=== PATIENT | female | born 1980 | race Asian ===

== ENCOUNTER 2018-07-14 04:46 | Inpatient (IN) | payer OTHER ==
[~2018-07-14] VITALS: Ht 152.4 cm; Wt 63.0 kg
[2018-07-14] MEDS ORDERED: TERBUTALINE 1 MG/ML, 1ML IV ONE (05:00)
[2018-07-14] MEDS ORDERED: TERBUTALINE 1 MG/ML, 1ML ONE (05:03)
[2018-07-14] MEDS ORDERED: PLEASE ENTER ALLERGIES MC SCH (05:30)
[2018-07-14] MEDS ORDERED: AZITHROMYCIN 500 MG TABLET PO STA (05:50)
[2018-07-14] MEDS: D5%-LACTATED RINGERS 1,000 ML IV SCH ×3 (05:50→21:50)
[2018-07-14] MEDS ORDERED: BETAMETHASONE 6 MG/ML, 5ML IM ONE (05:57)
[2018-07-14] MEDS ORDERED: MAGNESIUM SULF. PMX 20GM/500ML 500 ML IV ONE ×3 (05:57→22:26)
[2018-07-14] MEDS: LACTATED RINGERS 1,000 ML IV SCH ×2 (06:00→19:19)
[2018-07-14] MEDS ORDERED: BETAMETHASONE 6 MG/ML, 5ML IM SCH (06:00)
[2018-07-14] MEDS ORDERED: ONDANSETRON 2MG/ML, 2ML IVPush PRN (06:00)
[2018-07-14] MEDS: BETAMETHASONE 6 MG/ML, 5ML IM SCH (06:00)
[2018-07-14] MEDS: MAGNESIUM SULF. PMX 20GM/500ML 500 ML IV SCH ×3 (07:05→22:30)
[2018-07-14] MEDS: AMPICILLIN 2 GM in SODIUM CHLORIDE 0.9% 100 ML IV SCH ×3 (07:15→19:17)
[2018-07-14] MEDS ORDERED: MAGNESIUM SULFATE PMX 4GM/100M 100 ML IVPB ONE (07:30)
[2018-07-14] MEDS ORDERED: LIDOCAINE GEL 2%, 5ML TP ONE (08:30)
[2018-07-14 09:31] LABS: BASOPHILS # (AUTO) 0.01 x10^3/uL (0-0.1); BASOPHILS % (AUTO) 0 % (0-1); EOSINOPHILS % (AUTO) 0 % (1-7); LYMPHOCYTES # (AUTO) 0.98 x10^3/uL (1-3.4); LYMPHOCYTES % (AUTO) 9 % (22-44); MD NO; MEAN CORPUSCULAR HEMOGLOBIN 31.6 pg (27.0-34.8); MEAN CORPUSCULAR HGB CONC 33.1 g/dL (32.4-35.8); MEAN CORPUSCULAR VOLUME 95.6 fL (80-100); MEAN PLATELET VOLUME 8.4 fL (7.4-10.4); MONOCYTES # (AUTO) 0.19 x10^3/uL (0.2-0.8); MONOCYTES % (AUTO) 2 % (2-9); NEUTROPHILS # (AUTO) 9.57 x10^3/uL (1.8-6.8); NEUTROPHILS % (AUTO) 89 % (42-75); PLATELET COUNT 257 x10^3/uL (130-400); RED BLOOD COUNT 3.96 x10^6/uL (3.82-5.3); RED CELL DISTRIBUTION WIDTH 13.3 % (9.6-15.2)
[2018-07-14] MEDS ORDERED: DOCUSATE 100 MG CAPSULE ONE ×2 (10:24→20:52)
[2018-07-14] MEDS ORDERED: PRENATAL VIT/IRON/FA 1 EACH TABLET ONE (10:24)
[2018-07-14] MEDS: PRENATAL VIT/IRON/FA 1 EACH TABLET PO SCH (10:27)
[2018-07-14] MEDS: DOCUSATE 100 MG CAPSULE PO SCH ×2 (10:27→21:16)
[2018-07-14] MEDS ORDERED: INDOMETHACIN 25 MG CAPSULE ONE (13:22)
[2018-07-14] MEDS: INDOMETHACIN 50 MG CAPSULE PO SCH ×2 (13:31→19:33)
[2018-07-14 13:40] VITALS: BP 107/60
[2018-07-14] MEDS ORDERED: ACETAMINOPHEN 325 MG TABLET ONE (16:53)
[2018-07-14] MEDS: ACETAMINOPHEN 325 MG TABLET PO PRN (16:58)
[2018-07-15] MEDS ORDERED: CALCIUM CARBONATE 500 MG TAB.CHEW ONE (00:19)
[2018-07-15] MEDS ORDERED: SODIUM CHLORIDE NASAL SPRAY 45ML BOTTLE NAS PRN (00:30)
[2018-07-15] MEDS ORDERED: CALCIUM CARBONATE 500 MG TAB.CHEW PO PRN (00:30)
[2018-07-15] MEDS ORDERED: ACETAMINOPHEN 325 MG TABLET ONE ×2 (01:11→13:34)
[2018-07-15] MEDS: AMPICILLIN 2 GM in SODIUM CHLORIDE 0.9% 100 ML IV SCH ×4 (01:11→19:13)
[2018-07-15] MEDS: INDOMETHACIN 50 MG CAPSULE PO SCH ×4 (01:12→19:13)
[2018-07-15] MEDS: ACETAMINOPHEN 325 MG TABLET PO PRN ×2 (01:12→13:36)
[2018-07-15] MEDS ORDERED: ACETAMINOPHEN 325 MG TABLET PO PRN (01:30)
[2018-07-15] MEDS ORDERED: MAGNESIUM SULF. PMX 20GM/500ML 500 ML IV ONE ×2 (05:48→17:17)
[2018-07-15] MEDS: D5%-LACTATED RINGERS 1,000 ML IV SCH (05:50)
[2018-07-15] MEDS: BETAMETHASONE 6 MG/ML, 5ML IM SCH (05:55)
[2018-07-15] MEDS: LACTATED RINGERS 1,000 ML IV SCH ×2 (07:54→19:00)
[2018-07-15] MEDS: MAGNESIUM SULF. PMX 20GM/500ML 500 ML IV SCH ×2 (07:58→17:21)
[2018-07-15] MEDS ORDERED: DOCUSATE 100 MG CAPSULE ONE (08:50)
[2018-07-15] MEDS ORDERED: PRENATAL VIT/IRON/FA 1 EACH TABLET ONE (08:50)
[2018-07-15] MEDS: PRENATAL VIT/IRON/FA 1 EACH TABLET PO SCH (08:51)
[2018-07-15] MEDS: DOCUSATE 100 MG CAPSULE PO SCH (08:51)
[2018-07-15] MEDS ORDERED: ERYTHROMYCIN 500 MG in SODIUM CHLORIDE 0.9% 100 ML IV SCH (09:00)
[2018-07-15] MEDS ORDERED: SIMETHICONE 80 MG CHEW TAB ONE ×2 (15:20→18:32)
[2018-07-15] MEDS: SIMETHICONE 80 MG CHEW TAB PO PRN ×2 (15:21→18:33)
[2018-07-16] MEDS ORDERED: ACETAMINOPHEN 325 MG TABLET ONE (00:25)
[2018-07-16] MEDS ORDERED: DOCUSATE 100 MG CAPSULE ONE ×2 (00:25→07:40)
[2018-07-16] MEDS: ACETAMINOPHEN 325 MG TABLET PO PRN (00:27)
[2018-07-16] MEDS: LACTATED RINGERS 1,000 ML IV SCH (00:27)
[2018-07-16] MEDS: DOCUSATE 100 MG CAPSULE PO SCH ×3 (00:27→09:00)
[2018-07-16] MEDS: INDOMETHACIN 50 MG CAPSULE PO SCH ×2 (01:02→07:42)
[2018-07-16] MEDS: AMPICILLIN 2 GM in SODIUM CHLORIDE 0.9% 100 ML IV SCH (01:03)
[2018-07-16] MEDS ORDERED: MAGNESIUM SULF. PMX 20GM/500ML 500 ML IV ONE (03:05)
[2018-07-16] MEDS: MAGNESIUM SULF. PMX 20GM/500ML 500 ML IV SCH (03:12)
[2018-07-16] MEDS ORDERED: AMOXICILLIN 500 MG CAPSULE ONE ×3 (06:11→21:28)
[2018-07-16] MEDS: AMOXICILLIN 500 MG CAPSULE PO SCH ×3 (06:12→21:32)
[2018-07-16] MEDS ORDERED: PRENATAL VIT/IRON/FA 1 EACH TABLET ONE (07:39)
[2018-07-16] MEDS ORDERED: SIMETHICONE 80 MG CHEW TAB ONE (07:40)
[2018-07-16] MEDS: SIMETHICONE 80 MG CHEW TAB PO PRN (07:43)
[2018-07-16] MEDS: PRENATAL VIT/IRON/FA 1 EACH TABLET PO SCH (07:43)
[2018-07-17] MEDS ORDERED: AMOXICILLIN 500 MG CAPSULE ONE ×3 (05:49→21:01)
[2018-07-17] MEDS: AMOXICILLIN 500 MG CAPSULE PO SCH ×4 (05:56→21:03)
[2018-07-17 07:30] VITALS: BP 94/63
[2018-07-17] MEDS: PRENATAL VIT/IRON/FA 1 EACH TABLET PO SCH ×2 (09:00→16:25)
[2018-07-17] MEDS ORDERED: PRENATAL VIT/IRON/FA 1 EACH TABLET ONE (16:24)
[2018-07-17] MEDS ORDERED: DOCUSATE 100 MG CAPSULE ONE (16:24)
[2018-07-17] MEDS: DOCUSATE 100 MG CAPSULE PO SCH ×2 (16:25→21:00)
[2018-07-17] MEDS: LACTATED RINGERS 1,000 ML IV SCH (19:00)
[2018-07-17] MEDS ORDERED: MAGNESIUM SULF. PMX 20GM/500ML 500 ML IV ONE (19:15)
[2018-07-17] MEDS ORDERED: MAGNESIUM SULFATE PMX 4GM/100M 100 ML IVPB ONE (19:30)
[2018-07-17] MEDS ORDERED: NEWBORN KIT ONE (19:37)
[2018-07-17] MEDS: MAGNESIUM SULF. PMX 20GM/500ML 500 ML IV SCH (19:45)
[2018-07-18] MEDS ORDERED: MAGNESIUM SULF. PMX 20GM/500ML 500 ML IV ONE ×2 (02:30→22:31)
[2018-07-18] MEDS: MAGNESIUM SULF. PMX 20GM/500ML 500 ML IV SCH (02:32)
[2018-07-18 06:08] VITALS: BP 104/57
[2018-07-18] MEDS ORDERED: ACETAMINOPHEN 325 MG TABLET ONE (06:20)
[2018-07-18] MEDS: ACETAMINOPHEN 325 MG TABLET PO PRN (06:22)
[2018-07-18] MEDS: DOCUSATE 100 MG CAPSULE PO SCH ×2 (09:00→21:42)
[2018-07-18] MEDS: AMOXICILLIN 500 MG CAPSULE PO SCH ×3 (09:00→21:43)
[2018-07-18] MEDS ORDERED: PRENATAL VIT/IRON/FA 1 EACH TABLET ONE (10:47)
[2018-07-18] MEDS ORDERED: DOCUSATE 100 MG CAPSULE ONE ×2 (10:48→21:40)
[2018-07-18] MEDS ORDERED: AMOXICILLIN 500 MG CAPSULE ONE ×3 (10:48→21:41)
[2018-07-18] MEDS ORDERED: METOCLOPRAMIDE 5 MG/ML, 2ML ONE (16:52)
[2018-07-18] MEDS ORDERED: SODIUM CITRATE/CITRIC ACID 30 ML UDC ONE (16:52)
[2018-07-18] MEDS ORDERED: SODIUM CITRATE/CITRIC ACID 30 ML UDC PO ONE (17:00)
[2018-07-18] MEDS ORDERED: LACTATED RINGERS 1,000 ML IVBOLUS ONE (17:00)
[2018-07-18] MEDS ORDERED: METOCLOPRAMIDE 5 MG/ML, 2ML IV ONE (17:00)
[2018-07-18 18:53] LABS: BASOPHILS # (AUTO) 0.01 x10^3/uL (0-0.1); BASOPHILS % (AUTO) 0 % (0-1); EOSINOPHILS # (AUTO) 0.06 x10^3/uL (0-0.4); EOSINOPHILS % (AUTO) 1 % (1-7); LYMPHOCYTES # (AUTO) 1.29 x10^3/uL (1-3.4); LYMPHOCYTES % (AUTO) 20 % (22-44); MD NO; MEAN CORPUSCULAR HGB CONC 34.6 g/dL (32.4-35.8); MEAN CORPUSCULAR VOLUME 95.1 fL (80-100); MEAN PLATELET VOLUME 7.8 fL (7.4-10.4); MONOCYTES % (AUTO) 9 % (2-9); NEUTROPHILS # (AUTO) 4.48 x10^3/uL (1.8-6.8); NEUTROPHILS % (AUTO) 70 % (42-75); PLATELET COUNT 233 x10^3/uL (130-400); RED CELL DISTRIBUTION WIDTH 13.6 % (9.6-15.2)
[2018-07-18 19:32] VITALS: BP 124/62
[2018-07-18] MEDS ORDERED: SODIUM CHLORIDE FLUSH 3ML SYRINGE IVF SCH (21:00)
[2018-07-18] MEDS: LACTATED RINGERS 1,000 ML IV SCH ×2 (21:43→22:55)
[2018-07-18] MEDS ORDERED: MAGNESIUM SULFATE PMX 2GM/50ML 50 ML ONE (22:31)
[2018-07-18] MEDS ORDERED: CEFAZOLIN 1,000 MG ONE (22:41)
[2018-07-18] MEDS ORDERED: HYDROmorphone 2 MG/ML, 1ML ONE (22:41)
[2018-07-18] MEDS ORDERED: OXYTOCIN 10 UNITS/ML, 1ML ONE (22:41)
[2018-07-18] MEDS ORDERED: ONDANSETRON 2MG/ML, 2ML ONE (22:41)
[2018-07-18] MEDS ORDERED: FENTANYL PF 100 MCG/2ML ONE (22:41)
[2018-07-18] MEDS ORDERED: SODIUM CHLORIDE 0.9% PF 10ML ONE ×2 (22:43)
[2018-07-18] MEDS ORDERED: METOCLOPRAMIDE 5 MG/ML, 2ML IV PRN (23:00)
[2018-07-18] MEDS ORDERED: OXYcodone/APAP 5/325MG TABLET PO PRN (23:00)
[2018-07-18] MEDS ORDERED: MAGNESIUM SULF. PMX 20GM/500ML 500 ML IV PRN (23:00)
[2018-07-18] MEDS ORDERED: CARBOPROST TROMETHAMINE 250 MCG/ML, 1ML IM PRN (23:00)
[2018-07-18] MEDS ORDERED: GLYCERIN ADULT SUPP PR PRN (23:00)
[2018-07-18] MEDS ORDERED: ACETAMINOPHEN 325 MG TABLET PO PRN ×2 (23:00)
[2018-07-18] MEDS ORDERED: METHYLERGONOVINE 0.2 MG/ML IM PRN (23:00)
[2018-07-18] MEDS ORDERED: BISACODYL 10 MG SUPP PR PRN (23:00)
[2018-07-18] MEDS ORDERED: SIMETHICONE 80 MG CHEW TAB PO PRN (23:00)
[2018-07-18] MEDS ORDERED: MISOPROSTOL 200 MCG TABLET PR PRN (23:00)
[2018-07-18] MEDS ORDERED: CALCIUM CARBONATE 500 MG TAB.CHEW PO PRN (23:00)
[2018-07-18] MEDS ORDERED: DIPH,PERTUSS(ACELL),TET VAC/PF NC IM-VACC PRN (23:00)
[2018-07-18] MEDS ORDERED: MEASLES,MUMPS&RUBELLA VACC/PF 0.5 ML SQ-VACC PRN (23:00)
[2018-07-18] MEDS ORDERED: ONDANSETRON 2MG/ML, 2ML IV PRN (23:00)
[2018-07-18] MEDS ORDERED: KETOROLAC 30 MG/1 ML ONE (23:03)
[2018-07-19] MEDS ORDERED: KETOROLAC 30 MG/1 ML ONE (00:15)
[2018-07-19] MEDS ORDERED: OXYTOCIN 30U/ 0.9% NaCL 500ML 500 ML ONE (00:15)
[2018-07-19] MEDS: OXYTOCIN 30U/ 0.9% NaCL 500ML 500 ML IV SCH ×2 (00:25→08:55)
[2018-07-19] MEDS: LACTATED RINGERS 1,000 ML IV SCH ×9 (00:25→22:55)
[2018-07-19] MEDS: KETOROLAC 30 MG/1 ML IV SCH ×5 (00:26→22:43)
[2018-07-19] MEDS ORDERED: MAGNESIUM SULF. PMX 20GM/500ML 500 ML IV PRN (01:00)
[2018-07-19 02:10] VITALS: BP 100/64
[2018-07-19] MEDS: OXYcodone/APAP 5/325MG TABLET PO PRN ×3 (05:28→19:57)
[2018-07-19 07:50] VITALS: BP 108/66
[2018-07-19] MEDS: PRENATAL VIT/IRON/FA 1 EACH TABLET PO SCH (09:00)
[2018-07-19 10:32] LABS: BASOPHILS # (AUTO) 0.05 x10^3/uL (0-0.1); BASOPHILS % (AUTO) 1 % (0-1); EOSINOPHILS # (AUTO) 0.02 x10^3/uL (0-0.4); EOSINOPHILS % (AUTO) 0 % (1-7); LYMPHOCYTES # (AUTO) 1.32 x10^3/uL (1-3.4); LYMPHOCYTES % (AUTO) 14 % (22-44); MD NO; MEAN CORPUSCULAR HEMOGLOBIN 31.7 pg (27.0-34.8); MEAN CORPUSCULAR VOLUME 96.2 fL (80-100); MEAN PLATELET VOLUME 8.1 fL (7.4-10.4); MONOCYTES # (AUTO) 0.47 x10^3/uL (0.2-0.8); MONOCYTES % (AUTO) 5 % (2-9); NEUTROPHILS % (AUTO) 81 % (42-75); PLATELET COUNT 204 x10^3/uL (130-400); RED BLOOD COUNT 3.57 x10^6/uL (3.82-5.3); RED CELL DISTRIBUTION WIDTH 13.5 % (9.6-15.2)
[2018-07-19 12:07] VITALS: BP 113/71
[2018-07-19 16:06] VITALS: BP 110/65
[2018-07-19] MEDS: DOCUSATE 100 MG CAPSULE PO PRN (19:57)
[2018-07-19 20:00] VITALS: BP 113/73
[2018-07-20] MEDS: LACTATED RINGERS 1,000 ML IV SCH ×8 (01:17→22:55)
[2018-07-20] MEDS: OXYTOCIN 30U/ 0.9% NaCL 500ML 500 ML IV SCH ×3 (04:55→14:55)
[2018-07-20] MEDS: OXYcodone/APAP 5/325MG TABLET PO PRN ×4 (06:09→20:15)
[2018-07-20] MEDS: KETOROLAC 30 MG/1 ML IV SCH ×3 (06:09→17:54)
[2018-07-20 08:20] VITALS: BP 104/69
[2018-07-20] MEDS: PRENATAL VIT/IRON/FA 1 EACH TABLET PO SCH (11:54)
[2018-07-20] MEDS: IBUPROFEN 600 MG TABLET PO PRN (17:55)
[2018-07-20 20:00] VITALS: BP 99/65
[2018-07-20] MEDS: DOCUSATE 100 MG CAPSULE PO PRN (20:15)
[2018-07-21] MEDS: LACTATED RINGERS 1,000 ML IV SCH ×4 (00:55→09:40)
[2018-07-21] MEDS: OXYTOCIN 30U/ 0.9% NaCL 500ML 500 ML IV SCH (00:55)
[2018-07-21] MEDS: OXYcodone/APAP 5/325MG TABLET PO PRN ×4 (01:23→23:22)
[2018-07-21] MEDS: IBUPROFEN 600 MG TABLET PO PRN ×4 (01:23→23:22)
[2018-07-21 08:10] VITALS: BP 119/77
[2018-07-21] MEDS: PRENATAL VIT/IRON/FA 1 EACH TABLET PO SCH (08:53)
[2018-07-21] MEDS: DOCUSATE 100 MG CAPSULE PO PRN ×2 (08:53→20:45)
[2018-07-21 19:40] VITALS: BP 124/82
[2018-07-22] MEDS ORDERED: IBUP-1222 PO (02:00)
[2018-07-22] MEDS ORDERED: OXYC-302 PO (02:02)
[2018-07-22] MEDS ORDERED: IBUP-1223 PO (02:06)
[2018-07-22 08:05] VITALS: BP 114/75
[2018-07-22] MEDS: OXYcodone/APAP 5/325MG TABLET PO PRN ×2 (08:16→17:28)
[2018-07-22] MEDS: IBUPROFEN 600 MG TABLET PO PRN ×2 (08:16→17:28)
[2018-07-22] MEDS: PRENATAL VIT/IRON/FA 1 EACH TABLET PO SCH (08:16)
[2018-07-22] MEDS: DOCUSATE 100 MG CAPSULE PO PRN (08:16)
== END 2018-07-22 17:51 | disposition home or self-care (01) | DRG 786 ==
LOC: LDOP 04:46 → LDIP 05:53 → 2NW 07-19 01:43
PROVIDERS: ADMIT Obstetrics & Gynecology; ATTEND Obstetrics & Gynecology
PROC: 10D00Z1 Extraction of Products of Conception, Low, Open Approach (ICD-10-PCS; principal; 2018-07-19)
DX: O32.1XX0 Maternal care for breech presentation, not applicable or unspecified (principal); O60.14X0 Preterm labor third trimester with preterm delivery third trimester, not applicable or unspecified; O42.913 Preterm premature rupture of membranes, unspecified as to length of time between rupture and onset of labor, third trimester; O24.420 Gestational diabetes mellitus in childbirth, diet controlled; O34.13 Maternal care for benign tumor of corpus uteri, third trimester; D25.9 Leiomyoma of uterus, unspecified; O62.4 Hypertonic, incoordinate, and prolonged uterine contractions; Z3A.31 31 weeks gestation of pregnancy; Z37.0 Single live birth
CPT/HCPCS: 36415; 76805; 82803; 82962; 83735; 85025; 86850; 86900; 87081; 88307; 89060; G0378; J0290; J0690; J0702; J1170; J1885; J2405; J3010; J2590; J2765; J3105; J3475; J7120; Q0114